=== PATIENT | female | born 1980 | race African-American/Black ===

== ENCOUNTER → 2017-03-20 | Outpatient (CLI) | payer OTHER ==
[~2017-03-20] MED LIST: CITALOPRAM HBR40 MG; FIORICET,ESG1 TABLET PO; IRON325 M1 PO; LEVOTHYROXINE200 MC1; MOTRIN800 MG PO; MULTI-DAY PLUS1 EACH PO; ORTHO TRI-CY1 TABLE1 PO; ORTHO-NOVUM1 EAC1 PO; PHENERGAN25 MG PR; SPRINTEC1 EACH; SYNTHROID112 MCG PO
== END | disposition home or self-care (01) ==
LOC: RAD 13:30 → EDSTATUS 13:30 → RAD 13:31
DX: G43.119 Migraine with aura, intractable, without status migrainosus (principal)
CPT/HCPCS: C1755

== ENCOUNTER 2017-12-16 17:31 | Emergency (ER) | payer OTHER ==
[~2017-12-16] VITALS: Ht 170.2 cm; Wt 88.1 kg
[2017-12-16 18:25] LABS: HEMATOCRIT 33.2 % (36.0-46.0); HEMOGLOBIN 10.9 G/DL (11.9-15.5); MCH 25.9 PG (29.0-34.0); MCHC 32.8 G/DL (30.0-36.0); MCV 78.9 FL (83-99); RBC DIS.WIDTH-CV 16.5 % (11.8-14.6); RBC DIS.WIDTH-SD 47.4 % (39-53); RED BLOOD COUNT 4.21 M/uL (3.80-5.20)
[2017-12-16 18:33] LABS: ALBUMIN 4.2 g/dL (3.2-4.8); CHLORIDE 112 mEq/L (99-109); POTASSIUM 3.5 mEq/L (3.7-5.4); SODIUM 141 mEq/L (136-147)
[2017-12-16 18:35] LABS: GLUCOSE 100 mg/dL (70-99); TOTAL PROTEIN 7.7 g/dL (6.4-8.3)
[2017-12-16 18:37] LABS: TOTAL BILIRUBIN 0.5 mg/dL (0.0-1.0)
[2017-12-16 18:39] LABS: ALKALINE PHOSPHATASE 45 IU/L (3-129); CREATININE 0.9 mg/dL (0.6-1.3); GFR ESTIMATE (CALCULATED) > 59 mL/min/
[2017-12-16 18:40] LABS: UREA NITROGEN (BUN) 11 mg/dL (9-23)
[2017-12-16 18:41] LABS: AST (GOT) 22 IU/L (2-34)
[2017-12-16 18:42] LABS: ALT (GPT) 12 IU/L (3-49)
[2017-12-16 18:49] LABS: QUANTITATIVE HCG < 4.0 MIU/ML
[2017-12-16 19:04] LABS: PLAT.SUFFICIENCY ADEQUATE; PLATELET COUNT 178 K/uL (156-360)
[2017-12-16 19:07] LABS: APPEARANCE SL.HAZY ((CLEAR)); BILIRUBIN NEGATIVE; BLOOD NEGATIVE; COLOR YELLOW ((YELLOW)); GLUCOSE (STRIP) NEGATIVE; KETONES 5; LEUKOCYTES NEGATIVE; NITRITE NEGATIVE; PROTEIN (STRIP) 30; SPECIFIC GRAVITY 1.028 (1.000-1.030); UROBILINOGEN 0.2 MG/DL (0.2-1.0)
[2017-12-16 19:49] LABS: EPITHELIAL CELLS 2+ /HPF; RED BLOOD CELLS NONE SEEN /HPF (0-5); WHITE BLOOD CELLS 0-5 /HPF (0-5)
[2017-12-16 19:50] LABS: BACTERIA 2+ /HPF; MUCUS 3+ /LPF; UCUL ADDED? YES
[2017-12-16] MEDS ORDERED: PEPCID20 MG PO (22:31)
[2017-12-16 22:38] VITALS: BP 149/72
== END 2017-12-16 22:41 | disposition home or self-care (01) ==
LOC: EME 17:31
DX: K82.8 Other specified diseases of gallbladder (principal); Z88.8 Allergy status to other drugs, medicaments and biological substances
CPT/HCPCS: 76705; 80053; 81003; 84702; 85027; 87086; 99281; 99285; J7040; S0028

== ENCOUNTER → 2018-04-26 | Outpatient (CLI) | payer OTHER ==
[~2018-04-26] MED LIST changes: +CLONAZEPAM0.5 MG PO; +GILENYA0.5 MG PO; +PEPCID20 MG PO; +ZOLOFT50 MG PO
== END | disposition home or self-care (01) ==
LOC: CDC 08:12
DX: G35 Multiple sclerosis (principal)
CPT/HCPCS: 93000

== ENCOUNTER → 2018-04-26 | Outpatient (CLI) | payer OTHER | END | disposition home or self-care (01) | LOC: CDC 15:07 | DX: G35 Multiple sclerosis (principal) | CPT/HCPCS: 93000 ==